=== PATIENT | male | born 1960 ===

== ENCOUNTER 2018-11-30 02:47 | Emergency (ER) | payer BC ==
[2018-11-30] MEDS ORDERED: NS 0.9% 1000 ML** 1,000 ML IV ONE (02:59)
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
[2018-11-30 03:34] LABS: ABS Basophils 0.1 10^3/ul (0-0.2); ABS Eosinophils 0.2 10^3/ul (0-0.6); ABS Monocytes 0.6 10^3/ul (0-0.8); Hematocrit 41 % (42-52); Hemoglobin 14.1 g/dL (14.0-18.0); Lymphocyte % 44.1 %; Mean Corpuscular HGB Conc 34 g/dL (31-36); Mean Corpuscular Hemoglobin 30 pg (27-31); Mean Corpuscular Volume 87 fL (80-94); Mean Platelet Volume 6.3 fL (7.4-10.4); Nucleated Red Blood Cells % 0.1; Platelet Count 282 10^3/uL (150-450); Red Cell Distribution Width 14 % (10-15); White Blood Count 6.8 10^3/uL (3.5-10.8)
[2018-11-30 03:46] LABS: Urine Appearance Clear; Urine Bilirubin Negative (Negative); Urine Blood Negative (Negative); Urine Color Yellow; Urine Glucose Negative (Negative); Urine Ketones Negative (Negative); Urine Nitrite Negative (Negative); Urine Protein Negative (Negative); Urine Specific Gravity 1.023 (1.010-1.030); Urine Urobilinogen Negative (Negative)
[2018-11-30 03:49] LABS: Albumin 4.1 g/dL (3.2-5.2); Albumin/Globulin Ratio 1.5 (1-3); Calcium 9.5 mg/dL (8.6-10.3); EGFR African American 86.5 (>60); EGFR Non-African American 71.5 (>60); Globulin 2.8 g/dL (2-4); Potassium 4.1 mmol/L (3.5-5.0); Total Bilirubin 0.3 mg/dL (0.2-1.0); Total Protein 6.9 g/dL (6.4-8.9)
[2018-11-30] MEDS ORDERED: Iohexol 300* (CONTRAST) 10 ML SDV IV ONE (04:04)
[2018-11-30] MEDS ORDERED: Ondansetron INJ* 2 MG/ML VIAL IV ONE (04:33)
[2018-11-30 07:53] VITALS: BP 149/78
--- NOTE | 2018-11-30 13:28 | PN ---
Progress Note - Progress Note Date of Service: 12/06/18 Note: Called lab at 1 PM to request stool cultures and C. difficile panel Labs states it was canceled This was due to "it was not in a sterile container"
== END 2018-11-30 07:52 | disposition home or self-care (01) ==
LOC: ED 02:47
DX: K52.9 Noninfective gastroenteritis and colitis, unspecified (principal); Z88.8 Allergy status to other drugs, medicaments and biological substances; Z79.899 Other long term (current) drug therapy
CPT/HCPCS: 36415; 74177; 80053; 81003; 83690; 85025; 96361; 96374; 99282; J2405; Q9967